=== PATIENT | male | born 1960 | race Caucasian/White ===

== ENCOUNTER → 2023-09-08 | Outpatient (CLI) | payer OTHER ==
[2023-09-08 12:28] LABS: CHOLESTEROL 97 mg/dL (<200); LDL CHOLESTEROL 50 mg/dL (9-159); TRIGLYCERIDES 89 mg/dl (<150)
== END | disposition home or self-care (01) ==
LOC: LAB 11:27
PROVIDERS: ATTEND Physician Assistant Medical
DX: I25.10 Atherosclerotic heart disease of native coronary artery without angina pectoris (principal); E78.5 Hyperlipidemia, unspecified

== ENCOUNTER 2023-11-14 09:39 | Inpatient (IN) | payer OTHER ==
[2023-11-14] VITALS (7 sets, daily range): BP systolic 114–181; BP diastolic 68–92
[~2023-11-14] VITALS: Wt 130.4 kg
[2023-11-14 10:06] LABS: BASO # 0.1 10*3/uL (0.0-0.1); BASO % 0.5 % (0.0-1.0); EOS # 0.1 10*3/uL (0.0-0.4); EOS % 0.9 % (1.0-4.0); HEMATOCRIT 50.2 % (42.0-52.0); LYMPH # 2.5 10*3/uL (1.3-4.4); LYMPH % 23.5 % (27.0-41.0); MEAN CELL VOLUME 93.8 fl (80.0-94.0); MEAN CORPUSCULAR HGB 29.5 pg (27.0-31.0); MEAN CORPUSCULAR HGB CONC 31.5 g/dl (33.0-37.0); MEAN PLATELET VOLUME 9.8 fl (9.6-12.3); MONO # 0.6 10*3/uL (0.1-1.0); MONO % 5.9 % (3.0-9.0); NEUT # 7.2 10*3/uL (2.3-7.9); NEUT % 68.9 % (47.0-73.0); PLATELET COUNT AUTOMATED 290 10*3/uL (130-400); RED BLOOD COUNT 5.35 10*6/uL (4.50-5.90); RED CELL DISTRI WIDTH 13.1 % (0-14.5); WHITE BLOOD COUNT 10.4 10*3/uL (4.8-10.8)
[2023-11-14 10:12] LABS: BILIRUBIN Negative (Negative); BLOOD 2+ (Negative); CLARITY Clear (Clear); COLOR Yellow (Yellow); GLUCOSE Negative (Negative); KETONE Negative (Negative); LEUKO ESTERASE Negative (Negative); NITRITE Negative (Negative); PH 6.5 (4.5-8.0); SPECIFIC GRAVITY 1.015 (1.001-1.030)
[2023-11-14 10:29] LABS: ALKALINE PHOSPHATASE 112 U/L (46-116); BUN 10 mg/dl (9-23); CHLORIDE 105 mmol/L (98-107); LIPASE 32 U/L (12-53); SGPT/ALT 26 U/L (5-49); TOTAL PROTEIN 6.9 gm/dL (6.0-8.0)
[2023-11-14 10:36] LABS: RBC 41-50 rbc/hpf (0-2)
[2023-11-14 10:37] LABS: BACTERIA TRACE; WBC 0-2 wbc/hpf (0-5)
[2023-11-14] MEDS ORDERED: AZITHROMYCIN 250 ML IV ONE (10:50)
[2023-11-14] MEDS ORDERED: Ceftriaxone Sodium 1 GM/10 ML SYR IV ONE (10:50)
[2023-11-14] MEDS ORDERED: METOPROLOL SUCC25 M2 PO (11:07)
[2023-11-14] MEDS ORDERED: ATORVASTATIN CA80 M1 PO (11:07)
[2023-11-14] MEDS ORDERED: LISINOPRIL10 M1 PO (11:07)
[2023-11-14] MEDS ORDERED: CLOPIDOGREL75 MG PO (11:07)
[2023-11-14] MEDS ORDERED: ASPIRIN81 M1 PO (11:09)
[2023-11-14] MEDS ORDERED: Acetaminophen/Hydrocodone 5 MG/325 MG TABLET PO PRN (12:55)
[2023-11-14] MEDS ORDERED: Ondansetron Hydrochloride 4 MG/2 ML VIAL IV PRN (12:55)
[2023-11-14] MEDS ORDERED: Magnesium Hydroxide 30 ML UDC PO PRN (12:55)
[2023-11-14] MEDS ORDERED: ACETAMINOPHEN 325 MG TAB PO PRN (12:55)
[2023-11-14] MEDS ORDERED: ACETAMINOPHEN 650 MG SUPP R PRN (12:55)
[2023-11-14] MEDS ORDERED: BISACODYL 10 MG SUPP R PRN (12:55)
[2023-11-14] MEDS ORDERED: MORPHINE Sulfate 2 MG/ML SYR IV PRN (12:55)
[2023-11-14] MEDS ORDERED: BISACODYL 5 MG TAB PO PRN (12:55)
[2023-11-14] MEDS ORDERED: Technetium Tc 99M Tetrofosmi 0.23 MG KIT IJ SCH (15:20)
[2023-11-14] MEDS ORDERED: METOPROLOL SUCCINATE XR 25 MG TAB PO SCH (22:00)
[2023-11-14] MEDS ORDERED: ATORVASTATIN CALCIUM 80 MG TAB PO SCH (22:00)
[2023-11-15] VITALS: BP 100/50
[2023-11-15 06:39] LABS: BASO # 0.1 10*3/uL (0.0-0.1); BASO % 0.5 % (0.0-1.0); EOS # 0.1 10*3/uL (0.0-0.4); HEMATOCRIT 47.5 % (42.0-52.0); LYMPH # 3.2 10*3/uL (1.3-4.4); MEAN CORPUSCULAR HGB 30.1 pg (27.0-31.0); MEAN CORPUSCULAR HGB CONC 32.4 g/dl (33.0-37.0); MEAN PLATELET VOLUME 10.2 fl (9.6-12.3); MONO # 0.8 10*3/uL (0.1-1.0); MONO % 6.9 % (3.0-9.0); NEUT # 7.2 10*3/uL (2.3-7.9); NEUT % 63.3 % (47.0-73.0); PLATELET COUNT AUTOMATED 268 10*3/uL (130-400); RED BLOOD COUNT 5.11 10*6/uL (4.50-5.90); RED CELL DISTRI WIDTH 13.2 % (0-14.5); WHITE BLOOD COUNT 11.4 10*3/uL (4.8-10.8)
[2023-11-15] MEDS ORDERED: Regadenoson 0.4 MG/5 ML SYR IV ONE (06:41)
[2023-11-15 06:53] LABS: BUN 11 mg/dl (9-23); CHLORIDE 104 mmol/L (98-107); CHOLESTEROL 91 mg/dL (<200); LDL CHOLESTEROL 40 mg/dL (9-159); TRIGLYCERIDES 120 mg/dl (<150)
[2023-11-15 07:43] LABS: VITAMIN D, 25-HYDROXY 11.8 ng/mL (30-100)
[2023-11-15 08:00] VITALS: BP 135/78
[2023-11-15] MEDS ORDERED: Vitamin D 1,000 IU TAB (25 MCG) PO SCH (10:00)
[2023-11-15] MEDS ORDERED: ATORVASTATIN CALCIUM 80 MG TAB PO SCH (10:00)
[2023-11-15] MEDS ORDERED: AZITHROMYCIN 250 ML IV SCH (10:00)
[2023-11-15] MEDS ORDERED: METOPROLOL SUCCINATE XR 25 MG TAB PO SCH (10:00)
[2023-11-15] MEDS ORDERED: Clopidogrel Hydrogen Sulfate 75 MG TAB PO SCH (10:00)
[2023-11-15] MEDS ORDERED: Enoxaparin Sodium 40 MG/0.4 ML SYR SC SCH (10:00)
[2023-11-15] MEDS ORDERED: LISINOPRIL 10 MG TAB PO SCH (10:00)
[2023-11-15] MEDS ORDERED: ASPIRIN ENTERIC COATED 81 MG TAB PO SCH (10:00)
[2023-11-15] MEDS ORDERED: Ceftriaxone Sodium 1 GM in SYRINGE INFUSION 10 ML IV SCH (11:00)
[2023-11-15] MEDS ORDERED: PERFLUTREN PROTEIN-A MICROSPHR 3 ML VIAL IV ONE (11:23)
[2023-11-15 12:00] VITALS: BP 137/71
[2023-11-15] MEDS ORDERED: VITAMIN D350 MC3 PO (15:14)
[2023-11-15] MEDS ORDERED: ZITHROMAX250 MG PO (15:14)
[2023-11-15] MEDS ORDERED: VISTARIL25 M2 PO (15:21)
== END 2023-11-15 15:30 | disposition home or self-care (01) | DRG 194 ==
LOC: ED 09:39 → EDHOLD 12:23 → 4E 12:23 → EDHOLD 13:03 → 4E 14:52
PROVIDERS: Internal Medicine; Student in an Organized Health Care Education/Training Program; ADMIT Student in an Organized Health Care Education/Training Program; ATTEND Student in an Organized Health Care Education/Training Program
PROC: 4A02XM4 Measurement of Cardiac Total Activity, External Approach (ICD-10-PCS; principal; 2023-11-15)
PROC: 3E073KZ Introduction of Other Diagnostic Substance into Coronary Artery, Percutaneous Approach (ICD-10-PCS; 2023-11-15)
DX: J18.9 Pneumonia, unspecified organism (principal); I16.0 Hypertensive urgency; I25.10 Atherosclerotic heart disease of native coronary artery without angina pectoris; R73.9 Hyperglycemia, unspecified; E66.01 Morbid (severe) obesity due to excess calories; I10 Essential (primary) hypertension; Z79.899 Other long term (current) drug therapy; Z68.42 Body mass index [BMI] 45.0-49.9, adult; Z84.1 Family history of disorders of kidney and ureter; Z95.5 Presence of coronary angioplasty implant and graft